=== PATIENT | male | born 1965 | race Caucasian/White ===

== ENCOUNTER 2022-06-08 11:49 | Emergency (ER) | payer BC ==
[~2022-06-08] VITALS: Ht 180.3 cm; Wt 83.9 kg
[2022-06-08 12:00] VITALS: BP_SYST 149
--- NOTE | 2022-06-08 12:30 | NUR ---
Placed in room 6 . Placed on body welder, blood pressure machine and pulse oximeter. To gown for exam. Side rails up. Report given to SOCORRO TINSLEY.
--- NOTE | 2022-06-08 12:35 | NUR ---
RECEIVED PT FROM SOCORRO LAU. PT BIBS FOR C/O RECTAL PERINEAL PAIN CAUSED BY ABSESS. PT IS AAOX4, NORMAL S1S2 NOTED. RESP E/U, ON R/A. DENIES N/V/D/C. SKIN INTACT, WARM, PERIPHERAL PULSES NORMAL. SIDERAILS UP X2.
[2022-06-08] MEDS ORDERED: PIPERACILLIN/TAZO 3.375 GM in NS 50 ML IV ONE (13:00)
--- NOTE | 2022-06-08 13:20 | NUR ---
LABS OBTAINED, CT WITH CONTRAST CONSENT SIGNED.
[2022-06-08 13:27] LABS: BASOPHILS % (AUTO) 0.2 % (0.0-2.0); EOSINOPHILS % (AUTO) 0.1 % (0.0-4.0); HEMATOCRIT 42.3 % (36-54); HEMOGLOBIN 14.8 g/dL (14.0-18.0); LYMPHOCYTES # (AUTO) 1.1 K/uL (1.0-5.5); LYMPHOCYTES % (AUTO) 10.6 % (20.5-51.5); MEAN CORPUSCULAR HEMOGLOBIN 33 pg (27-31); MEAN CORPUSCULAR HGB CONC 35 % (32-36); MEAN CORPUSCULAR VOLUME 93 fL (79.0-98.0); NEUTROPHILS # (AUTO) 8.6 K/uL (1.8-7.7); NEUTROPHILS % (AUTO) 80.1 % (40.0-70.0); PLATELET COUNT (AUTO) 151 K/uL (130-430); RED BLOOD CELL COUNT(AUTO) 4.53 MIL/uL (4.2-6.2); RED CELL DISTRIBUTION WIDTH 13.7 % (9.0-15.0); WHITE BLOOD COUNT (AUTO) 10.7 K/uL (4.8-10.8)
--- NOTE | 2022-06-08 13:38 | NUR ---
# 20 gauge angiocath placed to LFA. Use of asceptic technique. Opsite placed over site. Blood return noted. Blood for lab drawn from site. Flushed with 10 cc of normal saline. No evidence of infiltration noted. Patient tolerated well.
--- NOTE | 2022-06-08 13:46 | NUR ---
ZOSYN IVPB INITIAED. CT MADE AWARE PT NEEDS SCAN.
[2022-06-08] MEDS ORDERED: PIPERACILLIN/TAZOBACTAM 3.375 GM/VIAL (ZOSYN) IV ONE (13:48)
[2022-06-08 13:53] LABS: INR 0.9 (0.80-1.20); PROTHROMBIN TIME 9.6 SECS (9.5-12.5)
[2022-06-08 13:54] LABS: CREATININE 0.97 mg/dL (0.55-1.30); POTASSIUM 4.2 mmol/L (3.5-5.1)
[2022-06-08 13:59] LABS: TOTAL BILIRUBIN 0.8 mg/dL (0.0-1.0)
--- NOTE | 2022-06-08 17:00 | NUR ---
DR. RODRIGUEZ AT BEDSIDE AND PREFORMED I&D TO PERINEAL AREA. SITE RINSED WITH NS, PATTED DRY AND GAUZE AND OPTIFOAM APPLIED, PT TOLERATED PROCEDURE WELL.
[2022-06-08] MEDS ORDERED: CEPH-548 PO (17:22)
[2022-06-08] MEDS ORDERED: cephALEXin 500 MG CAPSULE PO ONE (17:30)
--- NOTE | 2022-06-08 17:54 | NUR ---
Patient given written and verbal discharge instructions and verbalizes understanding. ER MD discussed with patient the results and treatment provided. Patient in stable condition. ID arm band removed. IV catheter removed intact and dressing applied, no active bleeding. Rx of CEPHALEXIN given. Patient educated on pain management and to follow up with PMD. Pain Scale 2/10. Opportunity for questions provided and answered. Medication side effect fact sheet provided.
[2022-06-08 17:55] VITALS: BP_SYST 138
== END 2022-06-08 17:54 | disposition home or self-care (01) ==
LOC: SED 11:49
DX: K61.0 Anal abscess (principal); K62.89 Other specified diseases of anus and rectum; Z79.899 Other long term (current) drug therapy
CPT/HCPCS: 46050; 99285; 74177; 96365; 80053; 82150; 83690; 85025; 85610; 85730; 36415; 76376; 83605; J2543; Q9967